=== PATIENT | male | born 1955 | race Caucasian/White ===

== ENCOUNTER 2018-05-26 18:33 | Emergency (ER) | payer OTHER ==
[~2018-05-26] VITALS: Ht 180.3 cm; Wt 90.7 kg
--- OUTSIDE RECORDS SUMMARY | 2018-05-26 18:35 | XMS REPORT | Continuity of Care Document ---
Author Author [facility] Interface Address Unknown Phone Unavailable Problems Problem Status Onset Date Classification Date Reported Comments Source Body Mass Index 25-29 - Overweight 05/29/2017 Problem 05/29/2017 [facility] Pain in Throat 05/29/2017 Problem 05/29/2017 [facility] Allergic Rhinitis 05/29/2017 Problem 05/29/2017 [facility] Influenza-like Symptoms 05/29/2017 Problem 05/29/2017 [facility] Allergic Cough 05/29/2017 Problem 05/29/2017 [facility] Allergic rhinitis 05/29/2017 Diagnosis 05/29/2017 [facility] Eustachian tube disorder 05/29/2017 Diagnosis 05/29/2017 [facility] Allergic cough 05/29/2017 Diagnosis 05/29/2017 [facility] Influenza-like symptoms 05/29/2017 Diagnosis 05/29/2017 [facility] Pain in throat 05/29/2017 Diagnosis 05/29/2017 [facility] Body mass index 25-29 - overweight 05/29/2017 Diagnosis 05/29/2017 [facility] 592.0 - CALCULUS OF KID Active 12/20/2014 [facility] Vicente Neoplasm of Prostate Problem 05/29/2017 [facility] Hypothyroidism Problem 05/29/2017 [facility] Hyperlipidemia Problem 05/29/2017 [facility] Eustachian Tube Disorder Problem 05/29/2017 [facility] Other fatigue Active Problem 05/02/2018 [facility] Frequency of micturition Active Problem 05/02/2018 [facility] Calculus of kidney Active Problem 05/02/2018 [facility] Malignant neoplasm of prostate Active Problem 05/02/2018 [facility] Unspecified lump in breast Active Problem 05/02/2018 [facility] Mixed hyperlipidemia Active Problem 05/02/2018 [facility] Dysuria Active Problem 05/02/2018 [facility] Colonic polyp Resolved Problem 05/02/2018 [facility] Proteinuria, unspecified Active Problem 05/02/2018 [facility] Unspecified renal colic Active Problem 05/02/2018 [facility] Erectile dysfunction following radical prostatectomy Active Problem 05/02/2018 [facility] Renal cyst Active Problem 05/02/2018 [facility] [place] Stress incontinence (male)(<span ID="[id number]">Confirmed</span>) Active Problem 05/02/2018 [facility] Testicular hypofunction Active Problem 05/02/2018 [facility] Calculus of ureter Resolved Problem 05/02/2018 [facility] Urgency of urination Active Problem 05/02/2018 [facility] Chicken pox Resolved Problem 05/02/2018 [facility] Bilirubinuria Active Problem 05/02/2018 [facility] Medications Medication Details Route Status Patient Instructions Ordering Provider Order Date Source Zolpidem tartrate 12.5 MG Extended Release Tablet [Ambien] 12.5 mg=1 tab, PO, Bedtime, PRN for sleep, X 30 day, # 30 tab, 0 Refill(s) Active 04/30/2018 [facility] Cholecalciferol 14823 UNT Oral Capsule [Decara] 50,000 IntlUnit=1 cap, PO, qWeek, # 13 cap, 0 Refill(s), Pharmacy: [facility] [place] [facility] Active 08/18/2017 [facility] benzonatate 200 MG Oral Capsule benzonatate 200 mg capsule Take 1 capsule 3 times a day by oral route as needed for cough for 10 days. Active [facility] Levothyroxine Sodium 0.025 MG Oral Tablet levothyroxine 25 mcg tablet TAKE ONE (1) TABLET(S) BY MOUTH ONCE A DAY IN THE MORNING ON AN EMPTY STOMACH. Active [facility] Medrol (Jony) 4 mg tablets in a dose pack Medrol (Jony) 4 mg tablets in a dose pack TAKE PO DIRECTED Take with food. Active [facility] Rosuvastatin calcium 10 MG Oral Tablet rosuvastatin 10 mg tablet TAKE ONE (1) TABLET(S) BY MOUTH ONCE A DAY AT BEDTIME. Active [facility] Allergies, Adverse Reactions, Alerts Substance Category Reaction Severity Reaction type Status Date Reported Comments Source Immunizations Immunization Date Given Site Status Last Updated Comments Source influenza, unspecified formulation 12/29/2016 completed [facility] Results Order Name Results Value Reference Range Date Interpretation Comments Source URINE AND STOOL POC UA Ket Negative mg/dL Negative mg/dL 04/30/2018 [facility] URINE AND STOOL POC UA Bili Negative *NA* (04/30/18 10:20 AM) Negative 04/30/2018 [facility] URINE AND STOOL POC UA Uro 0.2 EU/dL 0.1 - 1.0 04/30/2018 [facility] URINE AND STOOL POC UA Bld Negative *NA* (04/30/18 10:20 AM) Negative 04/30/2018 [facility] URINE AND STOOL POC UA Nit Negative *NA* (04/30/18 10:20 AM) Negative 04/30/2018 [facility] URINE AND STOOL POC UA Turbidity Clear *NA* (04/30/18 10:20 AM) Clear 04/30/2018 [facility] URINE AND STOOL POC UA Prot Negative mg/dL Negative mg/dL 04/30/2018 [facility] URINE AND STOOL POC UA Color Yellow *NA* (04/30/18 10:20 AM) Yellow 04/30/2018 [facility] URINE AND STOOL POC UA Glu Negative mg/dL Negative mg/dL 04/30/2018 [facility] URINE AND STOOL POC UA SG >=1.030 *ABN* (04/30/18 10:20 AM) <=1.030 04/30/2018 [facility] URINE AND STOOL POC UA pH 5.5 5.0 - 8.0 04/30/2018 [facility] URINE AND STOOL POC UA LeukEst Negative *NA* (04/30/18 10:20 AM) Negative 04/30/2018 [facility] URINE AND STOOL POC UA LeukEst Negative *NA* (08/18/17 10:33 AM) Negative 08/18/2017 [facility] URINE AND STOOL POC UA Uro 1.0 EU/dL 0.1 - 1.0 08/18/2017 [facility] URINE AND STOOL POC UA Nit Negative *NA* (08/18/17 10:33 AM) Negative 08/18/2017 [facility] URINE AND STOOL POC UA Ket Negative mg/dL Negative mg/dL 08/18/2017 [facility] URINE AND STOOL POC UA Bld Negative *NA* (08/18/17 10:33 AM) Negative 08/18/2017 [facility] URINE AND STOOL POC UA Bili Small *ABN* (08/18/17 10:33 AM) Negative 08/18/2017 [facility] URINE AND STOOL POC UA Turbidity Clear *NA* (08/18/17 10:33 AM) Clear 08/18/2017 [facility] URINE AND STOOL POC UA Color Yellow *NA* (08/18/17 10:33 AM) Yellow 08/18/2017 [facility] URINE AND STOOL POC UA SG 1.025 <=1.030 08/18/2017 [facility] URINE AND STOOL POC UA Prot 30 mg/dL Negative mg/dL 08/18/2017 [facility] URINE AND STOOL POC UA pH 6.5 5.0 - 8.0 08/18/2017 [facility] URINE AND STOOL POC UA Glu Negative mg/dL Negative mg/dL 08/18/2017 [facility] Abdomen/Pelvis w/wo IV contrast CT Abdomen/Pelvis w/wo IV contrast CT EXAM: CT ABDOMEN AND PELVIS WITH AND WITHOUT CONTRAST DATE: 08/06/2017 1:10 PM CDT INDICATION: Hematuria ADDITIONAL INFORMATION: None. COMPARISON: Renal stone CT dated 12/22/2014 TECHNIQUE: Volumetric CT acquisition of the abdomen and pelvis before and after the intravenous administration contrast. Axial, coronal and sagittal reconstructions. Postcontrast phases: Venous and delayed IV contrast: 100 mL Omnipaque Oral contrast: 100 CT Radiation Dose DLP 1274 mGy-cm AEC, mA/kV adjustment by patient size, and/or iterative reconstruction technique were used, per departmental dose-optimization program. FINDINGS: Lines and tubes: None. Lower thorax: Unremarkable. Liver and biliary tree: Unremarkable Gallbladder: Normal. No CT evidence of gallstones. Pancreas: Unremarkable. Spleen: Unremarkable Adrenals: Unremarkable Kidneys and ureters: Faint calcifications are seen the papillary regions bilaterally. One formed 2 mm calculus is seen in the lower pole of the left kidney. There are small bilateral parapelvic cysts. There is no hydronephrosis. Bladder: Unremarkable Reproductive organs: Surgically absent. Gastrointestinal tract: Unremarkable with normal caliber. Appendix: Normal Peritoneum and retroperitoneum: No ascites or free air. Lymph nodes: No pathologic adenopathy. Vasculature: Minimal scattered atherosclerotic plaque Bones: No acute abnormality. Mild spinal degenerative changes. Soft tissues: Tiny supraumbilical fat-containing hernia with a 2 mm neck. IMPRESSION: 1. Nonobstructing nephrolithiasis. 2. Small parapelvic renal cysts. 3. Prostatectomy. 08/06/2017 - - Read by: Vincent Marie Dictated Date/time: 08/07/17 08:20 Electronically Signed by: Vincent Marie 08/07/17 08:30 FINAL REPORT ELLIOT Ray Chest 2 views DX Chest 2 views DX Exam: Two-view chest x-ray Reason for Exam: - cough Comparison Exam: None Discussion: Cardiomediastinal silhouette is within normal limits. Both hemidiaphragms well visualized. No pulmonary edema or pleural effusions. No focal lung consolidations. Trachea is midline. No acute bony abnormalities. Impression: 1. No acute cardiopulmonary abnormalities. 08/06/2017 - - Read by: Corby Ely MD Dictated Date/time: 08/06/17 13:42 Electronically Signed by: Corby Ely MD 08/06/17 13:44 FINAL REPORT TAVON Ray RESULT negative 05/29/2017 [facility] SWAB LOCATION Left and Right tonsillar pillars 05/29/2017 [facility] Influenza A negative 05/29/2017 [facility] Influenza B negative 05/29/2017 [facility] URINE AND STOOL POC UA Uro 0.2 EU/dL 0.1 - 1.0 04/21/2017 [facility] URINE AND STOOL POC UA Nit Negative *NA* (04/21/17 1:15 PM) Negative 04/21/2017 [facility] URINE AND STOOL POC UA LeukEst Negative *NA* (04/21/17 1:15 PM) Negative 04/21/2017 [facility] URINE AND STOOL POC UA Bili Small *ABN* (04/21/17 1:15 PM) Negative 04/21/2017 [facility] URINE AND STOOL POC UA Bld Negative *NA* (04/21/17 1:15 PM) Negative 04/21/2017 [facility] URINE AND STOOL POC UA Ket Negative mg/dL Negative mg/dL 04/21/2017 [facility] URINE AND STOOL POC UA Prot Negative mg/dL Negative mg/dL 04/21/2017 [facility] URINE AND STOOL POC UA pH 5.5 5.0 - 8.0 04/21/2017 [facility] URINE AND STOOL POC UA Glu Negative mg/dL Negative mg/dL 04/21/2017 [facility] URINE AND STOOL POC UA Turbidity Clear *NA* (04/21/17 1:15 PM) Clear 04/21/2017 [facility] URINE AND STOOL POC UA Color Yellow *NA* (04/21/17 1:15 PM) Yellow 04/21/2017 [facility] URINE AND STOOL POC UA SG >=1.030 *ABN* (04/21/17 1:15 PM) <=1.030 04/21/2017 [facility] Retroperitoneal Complete US Retroperitoneal Complete US EXAM: US RENAL DATE: 08/02/2015 at 1512 hours INDICATION: N20.0 Calculus of kidney ADDITIONAL INFORMATION: None. COMPARISON: 08/11/2012 at 1346 hours TECHNIQUE: Multiplanar grayscale and color Doppler ultrasound of the kidneys and urinary bladder. FINDINGS: Right kidney: Size: 11.5 x 6.5 x 5.8 cm. Hydronephrosis: None. Echogenicity: Normal. Calculi: None. Cysts/Masses: Simple upper pole cyst is 1.1 x 1.0 x 1.0 cm. Left kidney: Size: 12.0 x 5.5 x 5.2 cm. Hydronephrosis: None. Echogenicity: Normal. Calculi: None. Cysts/Masses: None. Bladder: Normal. Other: None. IMPRESSION: 1. Simple (Bosniak 1) right renal cyst. 11/02/2015 - - Read by: Ramesh Gillis MD Dictated Date/time: 11/02/15 15:45 Electronically Signed by: Ramesh Gillis MD 11/02/15 15:47 FINAL REPORT TAVON Vicente Renal Stone CT Renal Stone CT EXAM: RENAL STONE STUDY WITHOUT CONTRAST INDICATION: Renal calculus. COMPARISON: CT of the abdomen and pelvis 11/16/2012. TECHNIQUE: Helical acquisition of the abdomen and pelvis was obtained from the lung bases to the symphysis pubis without administration of oral or intravenous contrast. Axial, sagittal and coronal images were interpreted. FINDINGS: Please note that evaluation of solid organs and vasculature is limited without IV contrast. Visualized lower thoracic structures are unremarkable. The liver, gallbladder, spleen, pancreas, and adrenal glands demonstrate no significant abnormality on this noncontrast exam. The kidneys demonstrate bilateral peripelvic hypodensities, likely representing cysts but not optimally evaluated on this exam. There is a nonobstructing 3 mm stone in the lower pole of the right kidney and an additional 1 to 2 mm stone also in the lower pole just inferiorly. There is a nonobstructing 1 to 2 mm stone in the interpolar left kidney and three tiny additional 1 to 2 mm stones in the lower pole. No evidence of obstructive uropathy or ureteral calculus. The bladder is poorly distended. There are postoperative changes of prior prostatectomy. Loops of bowel demonstrate no significant abnormality. The appendix has a normal appearance. There is no free air or ascites. There is a small fat containing umbilical hernia and bilateral fat-containing inguinal hernias. No lymphadenopathy in the abdomen or pelvis. Multiple Schmorl nodes are noted the visualized lumbar and thoracic spine with associated height loss. No destructive osseous lesions. IMPRESSION: 1. Tiny bilateral nonobstructing renal stones the largest measuring 3 mm in the lower pole of the right kidney, as described above. 2. Bilateral renal peripelvic hypodensities are likely small cysts. 3. Prior prostatectomy. 4. Small fat-containing umbilical and bilateral inguinal hernias. 12/22/2014 - - Read by: Solomon Godinez MD Dictated Date/time: 12/22/14 08:03 Electronically Signed by: Solomon Godinez MD 12/22/14 08:12 FINAL REPORT TAVON Jeterann Vital Signs Vital Sign Value Date Comments Source BMI Calculated 27.95 04/30/2018 [facility] Height 180.34 cm 04/30/2018 [facility] Heart Rate 65 04/30/2018 [facility] Systolic (mm Hg) 137 04/30/2018 [facility] Diastolic (mm Hg) 77 04/30/2018 [facility] Weight 90.909 04/30/2018 [facility] Height 182.88 cm 08/18/2017 [facility] Weight 90.909 08/18/2017 [facility] BMI Calculated 27.18 08/18/2017 [facility] Respitory Rate 17 08/18/2017 [facility] Heart Rate 59 08/18/2017 [facility] Systolic (mm Hg) 143 08/18/2017 [facility] Diastolic (mm Hg) 93 08/18/2017 [facility] Diastolic (mm Hg) 75 05/29/2017 [facility] Height 72 05/29/2017 [facility] Systolic (mm Hg) 114 05/29/2017 [facility] Weight 200 05/29/2017 [facility] Weight 90.909 04/21/2017 [facility] BMI Calculated 27.95 04/21/2017 [facility] Height 180.34 cm 04/21/2017 [facility] Systolic (mm Hg) 139 04/21/2017 [facility] Diastolic (mm Hg) 75 04/21/2017 [facility] Heart Rate 55 04/21/2017 [facility] Encounters Location Location Details Encounter Type Encounter Number Reason For Visit Attending Provider ADM Date DC Date Status Source Outpatient [id number] [facility] 11/17/2014 Active [facility] Outpatient [id number] [facility] 12/22/2014 Active [facility] [id number] [facility] 12/22/2014 12/23/2014 [facility] Outpatient [id number] CYSTO PROC ROOM 1 VISIT 12/29/2014 Active [facility] Outpatient [id number] [facility] 02/16/2015 Active [facility] Outpatient [id number] [facility] 06/29/2015 Active [facility] Outpatient [id number] [facility] 11/02/2015 [facility] [id number] [facility] 11/02/2015 11/03/2015 [facility] Outpatient [id number] [facility] 03/07/2016 Active [facility] Outpatient [id number] [facility] 04/22/2016 Active [facility] Outpatient [id number] [facility] 08/19/2016 Active [facility] Outpatient [id number] [facility] 12/16/2016 Active [facility] Outpatient [id number] [facility] 04/21/2017 [facility] [place] [id number] Boaz Betty 04/21/2017 04/22/2017 [facility] [place] - [facility] - [id number] Oswald, TOXICOLOGY TEACHER-C: [address], [place], [place] [address], Ph. [id number] Brittny Buchananroy 05/29/2017 [facility] - [place] [facility] [id number] [facility] 08/06/2017 08/07/2017 [facility] [place] Outpatient [id number] [facility] 08/18/2017 [facility] Outpatient [id number] [facility] 08/18/2017 08/19/2017 [facility] Outpatient [id number] [facility] 12/15/2017 [facility] Outpatient [id number] [facility] 04/30/2018 [facility] Outpatient [id number] [facility] 04/30/2018 05/01/2018 [facility] Outpatient [id number] [facility] 07/09/2018 [facility] Outpatient [id number] [facility] 08/20/2018 [facility] Procedures Procedure Code Date Perfomer Comments Source Measurement of post-voiding residual urine and/or bladder capacity by ultrasound, non-imaging 32048 04/21/2017 [facility] Anesth Removal of Prostate 91442 [facility] Colonoscopy [id number] [facility] [place] Lithotripsy [id number] [facility] [place] Colonoscopy [id number] [facility] Lithotripsy [id number] [facility]
--- OUTSIDE RECORDS SUMMARY | 2018-05-26 18:36 | XMS REPORT | Summary of Care ---
Author Author [facility] Address Unknown Phone Unavailable Encounter HQ Encntr_alias(FIN) [id number] Date(s): 12/22/14 - 12/22/14 [facility] [place] [address] [place] [phone] Discharge Disposition: Home Attending Physician: Walker Pena MD Vital Signs No data available for this section Problem List No data available for this section Allergies, Adverse Reactions, Alerts Substance Reaction Severity Status NKDA Active Medications No data available for this section Results No data available for this section Immunizations No data available for this section Procedures No data available for this section Social History Social History Type Response Assessment and Plan No data available for this section
--- OUTSIDE RECORDS SUMMARY | 2018-05-26 18:36 | XMS REPORT | Summary of Care ---
Author Author [facility] Organization [facility] Address Unknown Phone Unavailable Encounter NEHEMIAS Pate(ASHKAN) [id number] Date(s): 08/18/17 - 08/18/17 [facility] [address] [facility], [address] [phone] Discharge Disposition: Home or Self Care Attending Physician: Walker Pena MD Referring Physician: Boaz Hernández MD Vital Signs Most recent to 1 oldest [Reference Range]: Height 182.88 cm (08/18/17 10:34 AM) Blood Pressure 143/93 mmHg [90-140/60-90 mmHg] *HI* (08/18/17 10:34 AM) Respiratory Rate 17 BRMIN [14-20 BRMIN] (08/18/17 10:34 AM) Peripheral Pulse 59 bpm Rate [60-100 bpm] *LOW* (08/18/17 10:34 AM) Weight 90.909 kg (08/18/17 10:34 AM) Body Mass Index 27.18 m2 (08/18/17 10:34 AM) Problem List Condition Effective Dates Status Health Status Informant Other Active fatigue(Confirmed) Frequency of Active micturition(Confirme d) Calculus of Active kidney(Confirmed) Malignant neoplasm Active of prostate(Confirmed) Unspecified lump in Active breast(Confirmed) Mixed Active hyperlipidemia(Confi rmed) Dysuria(Confirmed) Active [facility] Resolved polyp(Confirmed) Proteinuria, Active unspecified(Confirme d) Unspecified renal Active colic(Confirmed) Erectile dysfunction Active following radical prostatectomy(Confir med) Renal Active cyst(Confirmed) Stress incontinence Active (female) (male)(Confirmed) Testicular Active hypofunction(Confirm ed) Calculus of Resolved ureter(Confirmed) Urgency of Active urination(Confirmed) Chicken Resolved pox(Confirmed) Allergies, Adverse Reactions, Alerts Substance Reaction Severity Status NKDA Active Medications Decara 50,000 intl units oral capsule 50,000 IntlUnit=1 cap, PO, qWeek, # 13 cap, 0 Refill(s), Pharmacy: [facility] Pharm[facility] [place] [facility] Start Date: 08/18/17 Stop Date: 11/16/17 Status: Ordered Results URINE AND STOOL Most recent to 1 oldest [Reference Range]: POC UA Turbidity Clear [Clear] *NA* (08/18/17 10:33 AM) POC UA Color Yellow [Yellow] *NA* (08/18/17 10:33 AM) POC UA pH [5.0-8.0] 6.5 (08/18/17 10:33 AM) POC UA SG [<=1.030] 1.025 (08/18/17 10:33 AM) POC UA Glu [Negative Negative mg/dL mg/dL] *NA* (08/18/17 10:33 AM) POC UA Bld Negative [Negative] *NA* (08/18/17 10:33 AM) POC UA Ket [Negative Negative mg/dL mg/dL] *NA* (08/18/17 10:33 AM) POC UA Prot 30 mg/dL [Negative mg/dL] *ABN* (08/18/17 10:33 AM) POC UA Uro [0.1-1.0 1.0 EU/dL EU/dL] (08/18/17 10:33 AM) POC UA Bili Small [Negative] *ABN* (08/18/17 10:33 AM) POC UA LeukEst Negative [Negative] *NA* (08/18/17 10:33 AM) POC UA Nit Negative [Negative] *NA* (08/18/17 10:33 AM) Immunizations No data available for this section Procedures Procedure Date Related Diagnosis Body Site Status Colonoscopy Completed Lithotripsy Completed Social History Social History Type Response Smoking Status Never smoker; Exposure to Tobacco Smoke None; Cigarette Smoking Last 365 Days No; Reg Smoking Cessation Counseling No entered on: 08/18/17 Assessment and Plan No data available for this section
--- OUTSIDE RECORDS SUMMARY | 2018-05-26 18:36 | XMS REPORT | Summary of Care ---
Author Author [facility] Organization [facility] Address Unknown Phone Unavailable Encounter NEHEMIAS Pate(ASHKAN) [id number] Date(s): 04/21/17 - 04/21/17 [facility] [address] [facility], [address] [phone] Discharge Disposition: Home or Self Care Attending Physician: Walker Pena MD Referring Physician: Boaz Hernández MD Vital Signs Most recent to 1 oldest [Reference Range]: Height 180.34 cm (04/21/17 11:48 AM) Blood Pressure 139/75 mmHg [90-140/60-90 mmHg] (04/21/17 11:48 AM) Peripheral Pulse 55 bpm Rate [60-100 bpm] *LOW* (04/21/17 11:48 AM) Weight 90.909 kg (04/21/17 11:48 AM) Body Mass Index 27.95 m2 (04/21/17 11:48 AM) Problem List Condition Effective Dates Status [...] Reaction Severity Status NKDA Active Medications No Known Medications Results URINE AND STOOL Most recent to 1 oldest [Reference Range]: POC UA Turbidity Clear [Clear] *NA* (1/22/18 1:15 PM) POC UA Color Yellow [Yellow] *NA* (04/21/17 1:15 PM) POC UA pH [5.0-8.0] 5.5 (04/21/17 1:15 PM) POC UA SG [<=1.030] >=1.030 *ABN* (04/21/17 1:15 PM) POC UA Glu [Negative Negative mg/dL mg/dL] *NA* (04/21/17 1:15 PM) POC UA Bld Negative [Negative] *NA* (04/21/17 1:15 PM) POC UA Ket [Negative Negative mg/dL mg/dL] *NA* (04/21/17 1:15 PM) POC UA Prot Negative mg/dL [Negative mg/dL] *NA* (04/21/17 1:15 PM) POC UA Uro [0.1-1.0 0.2 EU/dL EU/dL] (04/21/17 1:15 PM) POC UA Bili Small [Negative] *ABN* (04/21/17 1:15 PM) POC UA LeukEst Negative [Negative] *NA* (04/21/17 1:15 PM) POC UA Nit Negative [Negative] *NA* (04/21/17 1:15 PM) Immunizations No data available for this section Procedures Procedure Date Related Diagnosis Body Site Status Measurement of post-voiding residual urine 04/21/17 Completed and/or bladder capacity by ultrasound, non-imaging Colonoscopy Completed Lithotripsy Completed Social History Social History Type Response Smoking Status Never smoker; Exposure to Tobacco Smoke None; Cigarette Smoking Last 365 Days No; Reg Smoking Cessation Counseling No entered on: 04/22/17 Assessment and Plan No data available for this section
--- OUTSIDE RECORDS SUMMARY | 2018-05-26 18:36 | XMS REPORT | Summary of Care ---
Author Author [facility] U[facility] Organization [facility] Address Unknown Phone Unavailable Encounter NEHEMIAS Pate(ASHKAN) [id number] Date(s): 04/21/17 - 04/21/17 [facility] U[facility] [address] [facility], [address] [phone] Discharge Disposition: Home or Self Care Attending [...]
--- OUTSIDE RECORDS SUMMARY | 2018-05-26 18:36 | XMS REPORT | Summary of Care ---
Author Author [facility] [place] Organization [facility] [place] Address Unknown Phone Unavailable Encounter NEHEMIAS Pate(FIN) [id number] Date(s): 08/06/17 - 08/06/17 [facility] [place] [address] [place] [phone] Discharge Disposition: Home or Self Care Attending Physician: Walker Pena MD Vital Signs No data available for this section Problem List Condition Effective Dates Status Health [...]
--- OUTSIDE RECORDS SUMMARY | 2018-05-26 18:36 | XMS REPORT | Summary of Care ---
Author Author [facility] Urology [facility] Organization [facility] U[facility] Address Unknown Phone Unavailable Encounter NEHEMIAS Pate(ASHKAN) [id number] Date(s): 04/30/18 - 04/30/18 [facility] U[facility] [address] [facility], [address] [phone] Discharge Disposition: Home or Self Care Attending Physician: Walker Pena MD Referring Physician: Boaz Hernández MD Vital Signs Most recent to 1 oldest [Reference Range]: Height 180.34 cm (04/30/18 12:13 PM) Blood Pressure 137/77 mmHg [90-140/60-90 mmHg] (04/30/18 12:13 PM) Peripheral Pulse 65 bpm Rate [60-100 bpm] (04/30/18 12:13 PM) Weight 90.909 kg (04/30/18 12:13 PM) Body Mass Index 27.95 m2 (04/30/18 12:13 PM) Problem List Condition Effective Dates Status Health Status Informant Bilirubinuria(Confir Active med) Other Active fatigue(Confirmed) Frequency of Active micturition(Confirme [...] Substance Reaction Severity Status NKDA Active Medications Ambien CR 12.5 mg oral tablet, extended release 12.5 mg=1 tab, PO, Bedtime, PRN for sleep, X 30 day, # 30 tab, 0 Refill(s) Start Date: 04/30/18 Stop Date: 05/30/18 Status: Ordered Results URINE AND STOOL Most recent to 1 oldest [Reference Range]: POC UA Turbidity Clear [Clear] *NA* (04/30/18 10:20 AM) POC UA Color Yellow [Yellow] *NA* (04/30/18 10:20 AM) POC UA pH [5.0-8.0] 5.5 (04/30/18 10:20 AM) POC UA SG [<=1.030] >=1.030 *ABN* (04/30/18 10:20 AM) POC UA Glu [Negative Negative mg/dL mg/dL] *NA* (04/30/18 10:20 AM) POC UA Bld Negative [Negative] *NA* (04/30/18 10:20 AM) POC UA Ket [Negative Negative mg/dL mg/dL] *NA* (04/30/18 10:20 AM) POC UA Prot Negative mg/dL [Negative mg/dL] *NA* (04/30/18 10:20 AM) POC UA Uro [0.1-1.0 0.2 EU/dL EU/dL] (04/30/18 10:20 AM) POC UA Bili Negative [Negative] *NA* (04/30/18 10:20 AM) POC UA LeukEst Negative [Negative] *NA* (04/30/18 10:20 AM) POC UA Nit Negative [Negative] *NA* (04/30/18 10:20 AM) Immunizations No data available for this section Procedures Procedure Date Related Diagnosis Body Site Status Colonoscopy Completed Lithotripsy Completed Social History Social History Type Response Smoking Status Never smoker; Exposure to Tobacco Smoke None; Cigarette Smoking Last 365 Days No; Reg Smoking Cessation Counseling No entered on: 04/30/18 Assessment and Plan No data available for this section
--- OUTSIDE RECORDS SUMMARY | 2018-05-26 18:36 | XMS REPORT | Summary of Care ---
Author Author [facility] [place] Organization [facility] [place] Address Unknown Phone Unavailable Encounter NEHEMIAS Pate(FIN) [id number] Date(s): 08/06/17 - 08/06/17 [facility] [place] [address] [place] [phone] Discharge Disposition: Home or Self Care Attending [...]
--- OUTSIDE RECORDS SUMMARY | 2018-05-26 18:36 | XMS REPORT | Encounter Summary ---
Author Organization Unknown Address [address] [place] [id number] Phone [phone] Reason for Visit Medical Complaint Instructions 1. Allergic rhinitis allergies: care instructions Medrol (Jony) 4 mg tablets in a dose pack 2. Eustachian tube disorder eustachian tube problems: care instructions 3. Allergic cough benzonatate 200 mg capsule 4. Influenza-like symptoms rapid flu (A+B) 5. Pain in throat sore throat: care instructions rapid strep group A, throat 6. Body mass index 25-29 - overweight Discussion Note Pt is in NAD; Verbalizes understanding of all instructions with no questions at this time. Plan of Care Patient Instructions Take fluticasone over the counter as needed for nasla and ear congestion. [place] one spray in each nostril twice a day. Take a warm, steamy shower, blow your nose thereafter, and spray in each nostril. Tilt your head up for about 10 seconds and breath through your mouth. Do not sniff or snort the medication in or else the medication will go to your throat and not be absorbed appropriately. Take over the counter Xyzal for allergy like symptoms like runny nose, sneezing and watery eyes. Take steroid taper as directed and with food to avoid heartburn. Take Benzonatate for cough as directed. Take medications as prescribed and follow up with a PCP within 2-3 if symptoms worsen as discussed. Recommend follow a low sodium/fat/carb diet and exercise 30-45 mins/d 3-4 days a week once symptoms resolve. Reminders Provider Appointments None recorded. Lab Rapid Flu (A+B) 05/29/2017 [facility] Rapid Strep Group a, Throat 05/29/2017 [facility] Referral None recorded. Procedures None recorded. Surgeries None recorded. Imaging None recorded. Medications Name Start Date benzonatate 200 mg capsule Take 1 capsule 3 times a day by oral route as needed for cough for 10 days. levothyroxine 25 mcg tablet TAKE ONE (1) TABLET(S) BY MOUTH ONCE A DAY IN THE MORNING ON AN EMPTY STOMACH. Medrol (Jony) 4 mg tablets in a dose pack TAKE PO DIRECTED Take with food. rosuvastatin 10 mg tablet TAKE ONE (1) TABLET(S) BY MOUTH ONCE A DAY AT BEDTIME. Medications Administered None recorded. Vitals Height Weight BMI Blood Pressure 6 ft 200 lbs 27.1 kg/m2 114/75 mm[Hg] Lab Results Date Name Specimen Result Interpretation Description Value Range Status Address Rapid Strep Group a, Throat Result negative [facility]: [address] [place] [address] Swab Location Left and Right tonsillar pillars [facility]: [address] [place] [address] Rapid Flu (A+B) Influenza a negative [facility]: [address] [place] [address] Influenza B negative [facility]: [address] [place] [address] Allergies Code Code System Name Reaction Severity Status Onset NKDA Problems Name Status Onset Date Source Body Mass Index 25-29 - Overweight Active 05/29/2017 Pain in Throat Active 05/29/2017 Allergic Rhinitis Active 05/29/2017 Influenza-like Symptoms Active 05/29/2017 Allergic Cough Active 05/29/2017 Neoplasm of Prostate Active Hypothyroidism Active Hyperlipidemia Active Eustachian Tube Disorder Active Encounter Procedures Date Name Performed by Anesth Removal of Prostate Information not available Vaccine List Vaccine Type influenza, unspecified formulation 12/29/2016 Social History Smoking Status Never Smoker Past Encounters 05/29/2017 Allergic Rhinitis; Eustachian Tube Disorder; Allergic Cough; Influenza-like Symptoms; Pain in Throat; Body Mass Index 25-29 - Overweight Brittny Oswald, PHOTO TECH-C: [address] [place] [address], Ph. History of Present Illness Throat-Oral Complaint Reported By: Patient HPI: Location: throat. Quality: sore throat. Severity: moderate, pain level 6/10. Duration: ; x 1 month intermittently. Onset/Timing: sudden. Context: no sick contacts, no foreign travel, non-smoker. Modifying factors: OTC medication. Associated Symptoms: no fever, no headache, no body aches, no sputum production, no shortness of breath, no wheezing, no change in number of pillows needed to sleep at night, no sweats, no significant weight gain, no significant weight loss, no morning cough, no vomiting, no diarrhea, no rash, no nausea, sore throat; mild nasal congestion, post nasal drip, B/L ear pressure and dry cough Xowge-Gcwylmaqyf-Ymaoalg Reported By: Patient HPI: Location: head/sinuses, throat, chest. Quality: sore throat, nasal/sinus congestion, dry cough. Duration: ; x 1 month intermittently. Severity: moderate. Onset/Timing: gradual. Context: no sick contacts, no foreign travel, non-smoker. Modifying factors: OTC medication. Associated Symptoms: no sputum production, no shortness of breath, no wheezing, no change in number of pillows needed to sleep at night, no sweats, no significant weight gain, no significant weight loss, no morning cough, no vomiting, no diarrhea, no rash, no nausea, no fever, no muscle aches, no headache, sore throat; mild nasal congestion, post nasal drip, B/L ear pressure and dry cough Ear Complaint Reported By: Patient HPI: Location: bilateral. Quality: ears feel full/plugged, muffled. Severity: intermittent, moderate. Duration: intermittent, symptoms lasting over 2 weeks. Onset/Timing: worse, still present, gradual, fluctuating. Context: no sick contacts, no recent swimming/water in ear, no exposure to second hand smoke, no head trauma, not grinding teeth, no recent air travel. Modifying factors: does not hurt to lie on , or pull on ear, does not hurt to chew, nothing gives relief. Associated Symptoms: no discharge from the ears, no hearing loss, no ringing in the ears, no fever, no chills, no earache, no dizziness, no vertigo, no headache, no muscle aches, nose/sinus problems, popping noise in the ears; post nasal drip, sore throat, B/L ear pressure and dry cough Review of Systems:ROS as noted in the HPI Review of Systems Basic Reported By: Patient Physical Exam Adult Basic, Adult Male Complete Reported By: Patient Constitutional: General Appearance: healthy-appearing, well-nourished, well-developed, overweight. Level of Distress: NAD. Ambulation: ambulating normally Psychiatric: Mental Status: active and alert. Orientation: to time, to place, to person Xgb-Afwf-Frfvf-Throat: Ears: no lesions on external ear, no outer ear tenderness, EACs clear, TMs clear. Hearing: no hearing loss. Nose: no lesions on external nose, nares patent, no septal deviation, nasal passages clear, no sinus tenderness, post nasal drip; pale and edematous nasal turbinates bilaterally. Lips, Teeth, and Gums: no mouth or lip ulcers, no bleeding gums, normal dentition. Oropharynx: moist mucous membranes, no erythema, no exudates, tonsils not enlarged Neck: Lymph Nodes: no cervical LAD Lungs: Respiratory effort: no dyspnea, no tachypnea, no use of accessory muscles, no intercostal retractions. Auscultation: breath sounds normal Cardiovascular: Heart Auscultation: RRR, no murmurs Neurologic: Gait and Station: normal gait, normal station
--- OUTSIDE RECORDS SUMMARY | 2018-05-26 18:36 | XMS REPORT | Summary of Care ---
Author Author [facility] [place] Address Unknown Phone Unavailable Encounter HQ Encntr_alichuck(FIN) [id number] Date(s): 11/02/15 - 11/02/15 [facility] [place] [address] [place] [phone] Discharge Disposition: Home or Self Care Attending [...]
[2018-05-26] MEDS ORDERED: ASPIRIN 81 MG CHEW TAB PO ONE (20:00)
[2018-05-26] MEDS ORDERED: NIFEDIPINE 10 MG CAP PO NR (20:03)
[2018-05-26] MEDS ORDERED: ONDANSETRON HCL 4 MG ORAL DISINTEGRATING TAB PO NR (20:15)
[2018-05-26 20:45] LABS: BASOPHILS # (AUTO) 0.1 (0.0-0.1); BASOPHILS % 0.5 % (0.0-1.0); EOSINOPHILS # (AUTO) 0.2 (0.0-0.4); EOSINOPHILS % 2.1 % (0.0-6.0); HEMATOCRIT 44.6 % (38.2-49.6); HEMOGLOBIN 15.1 g/dL (14.0-18.0); LYMPHOCYTES # (AUTO) 1.1 (1.0-3.2); LYMPHOCYTES % 11.5 % (18.0-39.1); MEAN CORPUSCULAR HGB CONC 33.9 g/dL (31-35); MEAN CORPUSCULAR VOLUME 91.6 fL (81-99); MONOCYTES # (AUTO) 0.6 (0.2-0.8); MONOCYTES % 6.6 % (4.4-11.3); NEUTROPHILS # (AUTO) 7.4 (2.1-6.9); NEUTROPHILS % 79.1 % (38.7-80.0); PLATELET COUNT 215 x10e3/uL (140-360); RED BLOOD COUNT 4.87 x10e6/uL (4.3-5.7); RED CELL DISTRIBUTION WIDTH 12.9 % (11.7-14.4)
--- NOTE | 2018-05-26 20:48 | Diagnostic Imaging Report ---
EXAMINATION: CHEST SINGLE (PORTABLE) INDICATION: ^ERMD ORDER ^[id number] ^2024 ^Y COMPARISON: None FINDINGS: AP view TUBES and LINES: None. LUNGS: Lungs are well inflated. Lungs are clear. There is no evidence of pneumonia or pulmonary edema. PLEURA: No pleural effusion or pneumothorax. HEART AND MEDIASTINUM: The cardiomediastinal silhouette is unremarkable.. BONES AND SOFT TISSUES: No acute osseous lesion. Soft tissues are unremarkable. UPPER ABDOMEN: No free air under the diaphragm. IMPRESSION: No acute thoracic abnormality. Signed by: Dr. Danielle Cannon M.D. on 05/26/2018 8:45 PM
[2018-05-26 20:54] LABS: INR 0.92; PROTHROMBIN TIME 13.2 seconds (11.9-14.5)
[2018-05-26 20:54] LABS: BILIRUBIN,URINE NEGATIVE (NEGATIVE); CLARITY,URINE SL CLOUDY (CLEAR); COLOR,URINE STRAW (YELLOW); KETONES,URINE 1+ (NEGATIVE); LEUKOCYTE ESTERASE ,URINE NEGATIVE (NEGATIVE); NITRITE,URINE NEGATIVE (NEGATIVE); PROTEIN,URINE DIPSTICK NEGATIVE (NEGATIVE); URINE UROBILINOGEN 0.2 mg/dL (0.2 - 1)
[2018-05-26 20:55] LABS: PARTIAL THROMBOPLASTIN TIME 29.2 seconds (23.8-35.5)
[2018-05-26 21:04] LABS: ALANINE AMINOTRANSFERASE 39 IU/L (0-55); ALBUMIN 4.2 g/dL (3.5-5.0); ALBUMIN/GLOBULIN RATIO 1.6 (0.8-2.0); ALKALINE PHOSPHATASE 53 IU/L (40-150); ANION GAP 13.1 mmol/L (8-16); BLOOD UREA NITROGEN 13 mg/dL (7-26); BUN/CREATININE RATIO 15 (6-25); CALCIUM 9.6 mg/dL (8.4-10.2); CARBON DIOXIDE 29 mmol/L (22-29); CHLORIDE 101 mmol/L (98-107); CREATINE KINASE 93 IU/L (30-200); CREATININE, SERUM 0.86 mg/dL (0.72-1.25); EST GLOMERULAR FILTRATION RATE > 60 ML/MIN (60-); GLUCOSE 116 mg/dL (74-118); POTASSIUM 4.1 mmol/L (3.5-5.1); SODIUM 139 mmol/L (136-145)
[2018-05-26 21:10] LABS: BACTERIA,URINE MODERATE /HPF; MUCUS,URINE MODERATE (RARE)
[2018-05-26 22:08] VITALS: BP 158/82
== END 2018-05-26 22:10 | disposition home or self-care (01) ==
LOC: ER 18:33
DX: I10 Essential (primary) hypertension (principal)
CPT/HCPCS: 36415; 71045; 80053; 81001; 82550; 82553; 83735; 84443; 84484; 85025; 85610; 85730; 87086; 93005; 99283